=== PATIENT | female | born 1980 | race Caucasian/White ===

== ENCOUNTER 2018-12-07 20:43 | Emergency (ER) | payer MEDICAID ==
[~2018-12-07] VITALS: Ht 170.2 cm; Wt 64.9 kg
[2018-12-07 20:47] VITALS: BP 120/80
--- NOTE | 2018-12-07 20:47 | NUR ---
TO BED # 02 AMBULATORY
--- NOTE | 2018-12-07 21:00 | NUR ---
PATIENT IS A 38 Y/O FEMALE WHO PRESENTS TO THE ED C/O VAGINAL BLEEDING. PT STATES THAT IT STARTED TWO DAYS AGO. REPORTS HEAVY BLEEDING WITH CLOTS. PT REPORTS 7/10 CRAMPING LOWER ABD PAIN THAT DOES NOT RADIATE. PT BEING X6 WEEKS , LMP 6/. . PT DENIES CP, SOB, N/V/D. PT AWAKE AND ALERT, RR EVEN/UNLABORED. PT REPOSITIONED FOR COMFORT, BED IN LOWEST POSITION. ER MD DR. ZENG NOTIFIED. WILL CONTINUE TO MONITOR. DENIES PMH NKA
--- NOTE | 2018-12-07 21:16 | NUR ---
Dr. Dao examining patient.
[2018-12-07] MEDS ORDERED: ACETAMINOPHEN EXTRA STRENGTH 500 MG TAB PO ONE (21:20)
[2018-12-07 21:42] LABS: BASOPHILS # (AUTO) 0.1 K/uL (0.00-0.22); BASOPHILS % (AUTO) 0.5 % (0.0-2.0); EOSINOPHILS # (AUTO) 0.1 K/uL (0-0.4); EOSINOPHILS % (AUTO) 0.9 % (0.0-4.0); HEMATOCRIT 33.7 % (36-48); HEMOGLOBIN 11.5 g/dL (12.0-16.0); LYMPHOCYTES # (AUTO) 1.9 K/uL (2.5-16.5); LYMPHOCYTES % (AUTO) 18.8 % (20.5-51.1); MEAN CORPUSCULAR HEMOGLOBIN 30 pg (27-31); MEAN CORPUSCULAR HGB CONC 34 g/dL (33-37); MONOCYTES # (AUTO) 0.5 K/uL (0.8-1.0); MONOCYTES % (AUTO) 5.1 % (1.7-9.3); NEUTROPHILS # (AUTO) 7.5 K/uL (1.8-7.7); NEUTROPHILS % (AUTO) 74.7 % (42.2-75.2); PLATELET COUNT (AUTO) 237 K/uL (140-450); RED BLOOD CELL COUNT(AUTO) 3.83 MIL/uL (4.20-5.40); RED CELL DISTRIBUTION WIDTH 12.8 % (11.6-13.7)
[2018-12-07 21:47] LABS: APPEARANCE,URINE CLOUDY (CLEAR); BILIRUBIN,URINE 2+ (NEGATIVE); BLOOD, URINE 3+ (NEGATIVE); COLOR,URINE BROWN (YELLOW); LEUKOCYTE ESTERASE ,URINE 1+ (NEGATIVE); NITRITE, URINE POSITIVE (NEGATIVE); UGLUCOSE TRACE (NEGATIVE)
[2018-12-07 22:09] LABS: RBC,URINE TOO NUMEROUS TO COUN /HPF (0-5); WBC,URINE 0-5 /HPF (0-5)
[2018-12-07 23:32] VITALS: BP 135/74
--- NOTE | 2018-12-08 00:26 | NUR ---
PATIENT ELOPED FROM FACILITY. DISCHARGE INSTRUCTIONS NOT GIVEN TO PATIENT. DR. ZENG NOTIFIED.
== END 2018-12-08 00:26 | disposition left against medical advice (07) ==
LOC: MED 20:43
DX: O20.0 Threatened abortion (principal); Z98.890 Other specified postprocedural states
CPT/HCPCS: 36415; 76817; 81001; 81025; 84702; 85025; 86900; 86901; 87086; 87186; 99284; Q0092

== ENCOUNTER 2018-12-09 18:41 | Emergency (ER) | payer MEDICAID ==
[~2018-12-09] VITALS: Ht 170.2 cm; Wt 76.2 kg
[2018-12-09 18:48] VITALS: BP 121/89
--- NOTE | 2018-12-09 18:58 | NUR ---
PT AMBULATED TO LOBBY
--- NOTE | 2018-12-09 19:10 | NUR ---
PT AMBULATED TO RESTROOM
--- NOTE | 2018-12-09 19:20 | NUR ---
PT C/O OF VAGINAL BLEEDING AND PAIN IN SUPRAPUBIC AREA RADIATING TO LOWER BACK X2 DAYS. PT PAIN LEVEL 7/10, CRAMPING. NO MED HX. SAFETY MEASURES IN PLACE. WAITING FOR ERMD TO EVALUATE PT.
[2018-12-09 19:44] LABS: BASOPHILS % (AUTO) 0.3 % (0.0-2.0); EOSINOPHILS % (AUTO) 0.6 % (0.0-4.0); HEMATOCRIT 37.8 % (36-48); HEMOGLOBIN 12.6 g/dL (12.0-16.0); LYMPHOCYTES # (AUTO) 1.3 K/uL (2.5-16.5); LYMPHOCYTES % (AUTO) 17.3 % (20.5-51.1); MEAN CORPUSCULAR HEMOGLOBIN 30 pg (27-31); MEAN CORPUSCULAR HGB CONC 34 g/dL (33-37); MEAN CORPUSCULAR VOLUME 89.1 fL (80-94); MONOCYTES # (AUTO) 0.5 K/uL (0.8-1.0); MONOCYTES % (AUTO) 7.1 % (1.7-9.3); NEUTROPHILS # (AUTO) 5.5 K/uL (1.8-7.7); NEUTROPHILS % (AUTO) 74.7 % (42.2-75.2); PLATELET COUNT (AUTO) 253 K/uL (140-450); RED BLOOD CELL COUNT(AUTO) 4.24 MIL/uL (4.20-5.40); RED CELL DISTRIBUTION WIDTH 12.8 % (11.6-13.7); WHITE BLOOD COUNT (AUTO) 7.3 K/uL (4.8-10.8)
[2018-12-09 19:53] LABS: ANION GAP 9.9 (8-16); CARBON DIOXIDE 29.9 mmol/L (21-32); CREATININE 0.8 mg/dL (0.6-1.3); POTASSIUM 3.8 mmol/L (3.5-5.1)
[2018-12-09 19:59] LABS: ALBUMIN 3.4 g/dL (3.4-5.0); TOTAL BILIRUBIN 0.5 mg/dL (0.0-1.0)
--- NOTE | 2018-12-09 20:52 | NUR ---
US AT BEDSIDE.
--- NOTE | 2018-12-09 21:10 | NUR ---
PT C/O OF HEADACHE AND NECK PAIN RIGHT NOW. DENIES TRAUMA, PAIN 03/02. ERMD NOTIFIED.
[2018-12-09] MEDS ORDERED: ACETAMINOPHEN EXTRA STRENGTH 500 MG TAB PO ONE (21:15)
--- NOTE | 2018-12-09 21:50 | NUR ---
PT STATES SHE FELT WARM. TEMPERATURE 98.5. PROVIDED PT WITH COOL CLOTH FOR COMFORT MEASURES.
[2018-12-09] MEDS ORDERED: KETOROLAC 60 MG/2 ML VIAL IM ONE (22:40)
--- NOTE | 2018-12-09 23:14 | NUR ---
PT RESTING IN BED WITH EYES CLOSED, EASILY ARROUSABLE. PT STATES PAIN LEVEL DECREASED 5/10.
[2018-12-09 23:34] VITALS: BP 122/76
--- NOTE | 2018-12-09 23:34 | NUR ---
Patient discharged with v/s stable. Written and verbal after care instructions given and explained regarding light activity and monitoring bleeding. Patient alert, oriented and verbalized understanding of instructions. Ambulatory with steady gait. All questions addressed prior to discharge. ID band removed. Patient advised to follow up with PMD. Rx of motrin was given. Patient educated on indication of medication including possible reaction and side effects. Opportunity to ask questions provided and answered.
== END 2018-12-10 01:00 | disposition home or self-care (01) ==
LOC: MED 18:41
DX: O03.4 Incomplete spontaneous abortion without complication (principal); Z3A.01 Less than 8 weeks gestation of pregnancy
CPT/HCPCS: 36415; 76801; 80053; 81002; 81025; 84702; 85025; 96372; 99284; J1885; Q0092

== ENCOUNTER 2020-10-10 00:50 | Emergency (ER) | payer MEDICAID ==
[~2020-10-10] VITALS: Ht 170.2 cm; Wt 77.1 kg
[2020-10-10 01:05] VITALS: BP 165/90
--- NOTE | 2020-10-10 01:06 | NUR ---
PT TAKEN TO BED 7
--- NOTE | 2020-10-10 01:10 | NUR ---
Dr. Newman examining patient.
--- NOTE | 2020-10-10 01:10 | NUR ---
PATIENT PRESENTS TO ED WITH C/O OF RIGHT ANKLE PAIN AND SWELLING. PT STATES THAT IT STARTED 3 WEEKS AGO. DENIES ANY TRAUMA OR INJURY. SKIN IS PINK/WARM/DRY; AAOX4 WITH EVEN AND STEADY GAIT; HR EVEN AND REGULAR; PT DENIES ANY FEVER, CP, SOB, OR COUGH AT THIS TIME; PATIENT STATES PAIN OF 5/10 AT THIS TIME; VSS; PATIENT POSITIONED FOR COMFORT; HOB ELEVATED; BEDRAILS UP X2; BED DOWN. ER MD MADE AWARE OF PT STATUS. PMH: NONE ALLERGIES: NKA
--- NOTE | 2020-10-10 01:16 | NUR ---
X-Ray at bedside.
[2020-10-10] MEDS ORDERED: HYDROcodone/APAP 5/325 MG 1 TAB TAB PO ONE (01:20)
[2020-10-10 01:27] LABS: BASOPHILS # (AUTO) 0.1 K/uL (0.00-0.22); BASOPHILS % (AUTO) 0.8 % (0.0-2.0); EOSINOPHILS # (AUTO) 0.1 K/uL (0-0.4); EOSINOPHILS % (AUTO) 1.4 % (0.0-4.0); HEMATOCRIT 38.8 % (36-48); HEMOGLOBIN 13.2 g/dL (12.0-16.0); LYMPHOCYTES # (AUTO) 2.2 K/uL (2.5-16.5); LYMPHOCYTES % (AUTO) 33.6 % (20.5-51.1); MEAN CORPUSCULAR HEMOGLOBIN 30 pg (27-31); MEAN CORPUSCULAR HGB CONC 34 g/dL (33-37); MEAN CORPUSCULAR VOLUME 87.7 fL (80-94); MONOCYTES # (AUTO) 0.6 K/uL (0.8-1.0); MONOCYTES % (AUTO) 9.7 % (1.7-9.3); NEUTROPHILS # (AUTO) 3.6 K/uL (1.8-7.7); NEUTROPHILS % (AUTO) 54.5 % (42.2-75.2); PLATELET COUNT (AUTO) 273 K/uL (140-450); RED BLOOD CELL COUNT(AUTO) 4.42 MIL/uL (4.20-5.40); RED CELL DISTRIBUTION WIDTH 13.1 % (11.6-13.7); WHITE BLOOD COUNT (AUTO) 6.6 K/uL (4.8-10.8)
[2020-10-10 01:40] LABS: ANION GAP 11.5 (8-16); CARBON DIOXIDE 28.4 mmol/L (21-32); CREATININE 0.9 mg/dL (0.6-1.3); POTASSIUM 3.9 mmol/L (3.5-5.1)
--- NOTE | 2020-10-10 02:21 | NUR ---
WITH CONSENT/REQUEST FROM PATIENT, CAR KEYS GIVEN TO FRIEND NAMED ADELITA IN LOBBY.
[2020-10-10] MEDS ORDERED: IBUP-2213 PO (02:42)
[2020-10-10] MEDS ORDERED: ACET-8386 PO (02:42)
[2020-10-10] MEDS ORDERED: SULF-59 PO (02:42)
[2020-10-10] MEDS ORDERED: CEPH-588 PO (02:42)
[2020-10-10 02:49] VITALS: BP 165/90
--- NOTE | 2020-10-10 02:49 | NUR ---
Patient discharged with v/s stable. Written and verbal after care instructions given and explained. Patient alert, oriented and verbalized understanding of instructions. Ambulatory with steady gait. All questions addressed prior to discharge. ID band removed. Patient advised to follow up with PMD. Rx of HYDROCODONE/ACETAMINOPHEN, CEPHALEXIN, IBUPROFEN, BACTRIM given. Patient educated on indication of medication including possible reaction and side effects. Opportunity to ask questions provided and answered.
== END 2020-10-10 02:49 | disposition home or self-care (01) ==
LOC: MED 00:50
DX: L03.115 Cellulitis of right lower limb (principal); Z79.899 Other long term (current) drug therapy
CPT/HCPCS: 36415; 73610; 80048; 85025; 85651; 86140; 93971; 99285

== ENCOUNTER 2021-12-07 00:34 | Emergency (ER) | payer MEDICAID ==
[~2021-12-07] VITALS: Ht 170.2 cm; Wt 89.4 kg
[~2021-12-07 00:34] MED LIST: ACET-8386 PO; CEPH-588 PO; IBUP-2213 PO; SULF-59 PO
[2021-12-07 01:09] VITALS: BP 134/87
--- NOTE | 2021-12-07 01:19 | NUR ---
41 Y/O FEMALE BIBS FROM HOME, C/O TAMPON STUCK FOR 5 DAYS. PT IS ALSO COMPLAINING THAT SHE HAS TINGLING AND NUMBNESS TO FIRST 3/4 FINGERS OF BOTH HANDS X2 WKS. NO RECENT TRAUMA, DISCOLORATION. DENIES N/V/D, FEVER, COUGH, CP, OR SOB. A/OX4, UNLABORED BREATHING, AMBULATORY. DENIES PMH ALLERGY TO CODEINE AND LATEX NO MEDS
--- NOTE | 2021-12-07 02:15 | NUR ---
Pelvic exam performed by DR. ANDERSON with ME at bedside for entire examination. Patient tolerated procedure WELL. Patient assisted to position of comfort after examination.
[2021-12-07 02:20] VITALS: BP 119/81
--- NOTE | 2021-12-07 02:20 | NUR ---
Patient discharged with v/s stable. Written and verbal after care instructions given and explained. Patient verbalized understanding. Ambulatory with steady gait. All questions addressed prior to discharge. Advised to follow up with PMD.
== END 2021-12-07 02:20 | disposition home or self-care (01) ==
LOC: MED 00:34
DX: T19.2XXA Foreign body in vulva and vagina, initial encounter (principal); Z91.040 Latex allergy status; Z88.5 Allergy status to narcotic agent; X58.XXXA Exposure to other specified factors, initial encounter; Y93.89 Activity, other specified; Y92.89 Other specified places as the place of occurrence of the external cause; Y99.8 Other external cause status
CPT/HCPCS: 99284

== ENCOUNTER 2022-08-02 20:44 | Emergency (ER) | payer MEDICAID ==
[~2022-08-02] VITALS: Ht 170.2 cm; Wt 91.6 kg
[~2022-08-02 20:44] MED LIST changes: -ACET-8386 PO; +ACET-8905 PO
[2022-08-02 20:50] VITALS: BP 128/90
--- NOTE | 2022-08-02 20:53 | NUR ---
TO LOBBY A/W BED AMBULATORY
[2022-08-02 21:35] VITALS: BP 128/90
--- NOTE | 2022-08-02 21:35 | NUR ---
PT AMBULATED TO BED #6
--- NOTE | 2022-08-02 21:36 | NUR ---
ABSCESS ON HER TOOTH, GUMS WITH SWELLING SINCE LAST NIGHT
[2022-08-02] MEDS ORDERED: ONDANSETRON 4 MG ODT PO ONE (22:25)
[2022-08-02] MEDS ORDERED: BENZOCAINE 20% 57 GM CAN MC ONE (22:30)
[2022-08-02] MEDS ORDERED: ACET-8905 PO (22:35)
[2022-08-02] MEDS ORDERED: NAPR-54 PO (22:35)
[2022-08-02] MEDS ORDERED: AMOX500C25 PO (22:35)
--- NOTE | 2022-08-02 23:06 | NUR ---
Patient discharged with v/s stable. Written and verbal after care instructions given and explained. Patient alert, oriented and verbalized understanding of instructions. Ambulatory with steady gait. All questions addressed prior to discharge. ID band removed. Patient advised to follow up with PMD. Rx of HYDROCODONE AMOXICILLIN NAPROSYN given. Patient educated on indication of medication including possible reaction and side effects. Opportunity to ask questions provided and answered.
== END 2022-08-02 23:06 | disposition home or self-care (01) ==
LOC: MED 20:44
DX: K04.7 Periapical abscess without sinus (principal); Z98.890 Other specified postprocedural states; Z79.891 Long term (current) use of opiate analgesic; Z79.1 Long term (current) use of non-steroidal anti-inflammatories (NSAID); Z79.2 Long term (current) use of antibiotics; Z88.5 Allergy status to narcotic agent; Z91.040 Latex allergy status
CPT/HCPCS: 41800; 99284; Q0162

== ENCOUNTER 2022-08-23 05:55 | Emergency (ER) | payer MEDICAID ==
[~2022-08-23] VITALS: Ht 170.2 cm; Wt 94.3 kg
[~2022-08-23 05:55] MED LIST changes: +AMOX500C25 PO; +NAPR-54 PO
[2022-08-23 06:05] VITALS: BP 140/93
--- NOTE | 2022-08-23 06:10 | NUR ---
Patient taken to bed 4.
--- NOTE | 2022-08-23 06:11 | NUR ---
Dr. Miller examining patient.
[2022-08-23] MEDS ORDERED: GABAPENTIN 300 MG CAP PO ONE (06:20)
[2022-08-23] MEDS ORDERED: GABA100C PO (06:23)
[2022-08-23 06:45] VITALS: BP 140/93
--- NOTE | 2022-08-23 06:45 | NUR ---
Patient discharged with v/s stable. Written and verbal after care instructions given and explained. Patient alert, oriented and verbalized understanding of instructions. Ambulatory with steady gait. All questions addressed prior to discharge. ID band removed. Patient advised to follow up with PMD. Rx of gabapentin given. Patient educated on indication of medication including possible reaction and side effects. Opportunity to ask questions provided and answered.
== END 2022-08-23 06:45 | disposition home or self-care (01) ==
LOC: MED 05:55
DX: R20.2 Paresthesia of skin (principal); L29.9 Pruritus, unspecified; Z79.899 Other long term (current) drug therapy; Z91.040 Latex allergy status
CPT/HCPCS: 99283

== ENCOUNTER 2022-09-28 06:40 | Emergency (ER) | payer MEDICAID ==
[~2022-09-28] VITALS: Ht 170.2 cm; Wt 93.4 kg
[~2022-09-28 06:40] MED LIST changes: +GABA100C PO
[2022-09-28 06:48] VITALS: BP 140/100
[2022-09-28] MEDS ORDERED: KETOROLAC 30 MG/ML VIAL IM ONE (07:20)
[2022-09-28] MEDS ORDERED: IBUP-2213 PO (08:01)
[2022-09-28 08:21] VITALS: BP 139/101
== END 2022-09-28 08:03 | disposition home or self-care (01) ==
LOC: MED 06:40
DX: M79.671 Pain in right foot (principal); Z88.5 Allergy status to narcotic agent; Z91.040 Latex allergy status; Z79.899 Other long term (current) drug therapy
CPT/HCPCS: 73630; 81025; 96372; 99283; J1885

== ENCOUNTER 2023-03-29 01:15 | Emergency (ER) | payer MEDICAID ==
[~2023-03-29] VITALS: Ht 162.6 cm; Wt 85.7 kg
[~2023-03-29 01:15] MED LIST changes: -ACET-8905 PO; -AMOX500C25 PO; -CEPH-588 PO; +FOLI1TAB90 PO; -IBUP-2213 PO; -NAPR-54 PO; +NITR100C7 PO; -SULF-59 PO; +TRAZ-466 PO; +[UNRECOGNIZED DRUG - CODE] PO
[2023-03-29 02:01] VITALS: BP 153/102; PULSE 103; RESP 20; TEMP 98.4; O2SAT 99
== END 2023-03-29 03:29 | disposition left against medical advice (07) ==
LOC: MED 01:15
DX: R51.9 Headache, unspecified (principal); Z53.21 Procedure and treatment not carried out due to patient leaving prior to being seen by health care provider
CPT/HCPCS: 99281

== ENCOUNTER 2024-02-19 13:16 | Emergency (ER) | payer MEDICAID ==
[~2024-02-19] VITALS: Ht 170.2 cm; Wt 95.7 kg
[2024-02-19 13:33] VITALS: BP 137/105; PULSE 114; RESP 20; TEMP 98.8; O2SAT 96
[2024-02-19 14:42] LABS: BASOPHILS # (AUTO) 0.1 K/uL (0.00-0.22); BASOPHILS % (AUTO) 1.1 % (0.0-2.0); EOSINOPHILS # (AUTO) 0.1 K/uL (0-0.4); EOSINOPHILS % (AUTO) 1.7 % (0.0-4.0); HEMATOCRIT 41.1 % (36-48); HEMOGLOBIN 13.5 g/dL (12.0-16.0); LYMPHOCYTES # (AUTO) 1.8 K/uL (2.5-16.5); LYMPHOCYTES % (AUTO) 33.2 % (20.5-51.1); MEAN CORPUSCULAR HEMOGLOBIN 29 pg (27-31); MEAN CORPUSCULAR HGB CONC 33 g/dL (33-37); MEAN CORPUSCULAR VOLUME 88.2 fL (80-94); MONOCYTES # (AUTO) 0.6 K/uL (0.8-1.0); MONOCYTES % (AUTO) 11.4 % (1.7-9.3); NEUTROPHILS # (AUTO) 2.9 K/uL (1.8-7.7); NEUTROPHILS % (AUTO) 52.6 % (42.2-75.2); PLATELET COUNT (AUTO) 270 K/uL (140-450); RED BLOOD CELL COUNT(AUTO) 4.66 MIL/uL (4.20-5.40); RED CELL DISTRIBUTION WIDTH 13.6 % (11.6-13.7); WHITE BLOOD COUNT (AUTO) 5.5 K/uL (4.8-10.8)
[2024-02-19 14:56] LABS: ALANINE AMINOTRANSFERASE 41 U/L (12-78); ALBUMIN 3.4 g/dL (3.4-5.0); ALKALINE PHOSPHATASE 75 U/L (50-136); ANION GAP 8.8 (8-16); ASPARTATE AMINOTRANSFERASE 22 U/L (15-37); CALCIUM 8.7 mg/dL (8.5-10.1); CHLORIDE 102 mmol/L (98-107); GFR ARICAN-AMERICAN 77 mL/min (>90); GFR NON ARICAN-AMERICAN 64 mL/min (>90); GLUCOSE 101 mg/dL (74-106); LIPASE 34 U/L (16-77); POTASSIUM 3.8 mmol/L (3.5-5.1); SODIUM SERUM 138 mmol/L (136-145); TOTAL BILIRUBIN 0.8 mg/dL (0.0-1.0); TOTAL PROTEIN, SERUM 6.9 g/dL (6.4-8.2); UREA NITROGEN, BLOOD 16 mg/dL (7-18)
[2024-02-19] MEDS: MORPHINE SULFATE 4 MG/ML SYR IVP ONE (15:04)
[2024-02-19 15:12] LABS: APPEARANCE,URINE CLEAR (CLEAR); BILIRUBIN,URINE NEGATIVE (NEGATIVE); BLOOD, URINE TRACE-I (NEGATIVE); COLOR,URINE YELLOW (YELLOW); LEUKOCYTE ESTERASE ,URINE NEGATIVE (NEGATIVE); NITRITE, URINE POSITIVE (NEGATIVE); PROTEIN,URINE NEGATIVE (NEGATIVE); UGLUCOSE NEGATIVE (NEGATIVE); UROBILINOGEN,URINE 0.2 EU/dL (0.2 - 1)
[2024-02-19 15:40] LABS: BACTERIA,URINE >30 (MANY) /HPF (None Seen); MUCUS,URINE None Seen /LPF (None Seen); RBC,URINE 0-5 /HPF (0-5); SQUAMOUS EPITHELIAL CELL,UR 4-10 (MOD) /LPF (0-3 (FEW)); TRICHOMONAS,URINE None Seen /HPF (None Seen); WBC,URINE 0-5 /HPF (0-5); YEAST,URINE None Seen /HPF (None Seen)
[2024-02-19 15:41] LABS: WHITE BLOOD CELL CASTS,URINE None Seen /LPF (None Seen)
[2024-02-19 16:03] VITALS: BP 131/64; PULSE 78; RESP 17; TEMP 98; O2SAT 97
[2024-02-19] MEDS ORDERED: CEPH500C16 PO (16:04)
== END 2024-02-19 16:04 | disposition home or self-care (01) ==
LOC: MED 13:16
DX: N39.0 Urinary tract infection, site not specified (principal); R07.81 Pleurodynia; Z79.899 Other long term (current) drug therapy; Z88.5 Allergy status to narcotic agent; Z91.040 Latex allergy status
CPT/HCPCS: 36415; 71045; 76705; 80053; 81001; 81025; 83690; 84484; 84703; 85025; 87086; 93005; 96374; 99285; J2270; Q0092